=== PATIENT | male | born 1955 | race Caucasian/White ===

== ENCOUNTER 2018-02-23 08:09 | Emergency (ER) | payer OTHER ==
[~2018-02-23] VITALS: Wt 74.8 kg
--- NOTE | ~2018-02-23 | HM ---
[place], [place] HOLTER MONITOR REPORT [id number] UNIT #: [id number] ROOM: DOCTOR: VENANCIO RIZZO MD BIRTHDATE: [birth year] DOS: 02/27/2018 A 48-HOUR HOLTER MONITOR Recording was obtained between 02/23/2018 and 02/25/2018. The recording was analyzed on 02/27/2018 and interpreted and dictated the same day. INDICATIONS: Syncope. FINDINGS: The patient was monitored utilizing a Holter device for 48 hours. The basic rhythm was sinus. Average heart rate was 63 with heart rate varying from 35-109 beats per minute. Seven isolated PVCs were noted. There was no ventricular tachycardia seen. Occasional premature atrial contractions were noted. Five short runs of SVT were recorded with a duration of up to 7 beats. The fastest heart rate during SVT was 152 beats per minute. No prolonged SVT was seen. The patient did have marked bradycardia and a 4.1 second pause at 11:59 a.m. on the first day of monitoring 02/23/2018. A diary was returned, but there were no entries. IMPRESSION: 1. Sinus rhythm throughout the monitored duration. Average heart rate was relatively slow at 63 beats per minute. 2. Short runs of supraventricular tachycardia recorded. 3. Periods of marked sinus bradycardia recorded with a pause of up to 4.1 seconds recorded at about noon on the first monitor day. 4. No symptoms reported. The study is compatible with a conduction system disorder or sick sinus syndrome. The patient's medication list should be reviewed to make sure that he is not on rate slowing medications. VENANCIO RIZZO MD CM:HOLTER:HOLTER MONITOR REPORT [id number] VENANCIO RIZZO MD
--- NOTE | ~2018-02-23 | EKG ---
[place], [place] ELECTROCARDIOGRAM REPORT NAME: JOSE JOHNSON UNIT #: [id number] ROOM: DOCTOR: EPIPHANY DRAFT REPORT BIRTHDATE: [birth year] [facility] Test Date: 2018-02-23 Test Time: 08:52:51 Pat Name: JOSE JOHNSON Department: Room: Gender: Youth Services Specialist: Sandra Castillo : [id number] Requested By: MALIKA NORMAN Order Number: [id number] Reading MD: Андрей Maguire MD Measurements Intervals [place] Rate: 54 P: 49 MS: 176 QRS: 26 QRSD: 92 T: 48 QT: 421 QTc: 399 Interpretive Statements Sinus rhythm Abnormal inferior Q waves Electronically Signed On 02-23-2018 20:46:50 PDT by Андрей Maguire MD CM:EKGRPT:ELECTROCARDIOGRAM REPORT [id number] [id number] MALIAK HOYOS DRAFT REPORT MALIKA NORMAN M.D.
[~2018-02-23 08:09] MED LIST: Motrin,Rufen800 MG PO; VICODIN 500 MG-1 TAB PO
[2018-02-23 09:00] LABS: BASO % 0.3 % (0.0-1.0); EOS % 0.3 % (1.0-4.0); HEMATOCRIT 42.3 % (42.0-52.0); LYMPH # 0.4 10*3/uL (1.3-4.4); LYMPH % 6.5 % (27.0-41.0); MEAN CELL VOLUME 92.2 fl (80.0-94.0); MEAN CORPUSCULAR HGB 30.5 pg (27.0-31.0); MEAN CORPUSCULAR HGB CONC 33.1 g/dl (33.0-37.0); MEAN PLATELET VOLUME 9.9 fl (9.6-12.3); MONO # 0.4 10*3/uL (0.1-1.0); MONO % 6.2 % (3.0-9.0); NEUT # 5.2 10*3/uL (2.3-7.9); NEUT % 86.4 % (47.0-73.0); PLATELET COUNT AUTOMATED 193 10*3/uL (130-400); RED BLOOD COUNT 4.59 10*6/uL (4.50-5.90); RED CELL DISTRI WIDTH 12.6 % (0-14.5)
[2018-02-23 09:14] LABS: ALBUMIN 3.6 gm/dl (3.1-4.5); ALKALINE PHOSPHATASE 71 U/L (45-117); BUN 10 mg/dl (7-24); CHLORIDE 106 mmol/L (98-107); CREATININE 1.03 mg/dL (0.70-1.30); POTASSIUM 4.3 mmol/L (3.5-5.1); SGOT/AST 30 IU/L (3-35); SGPT/ALT 33 U/L (12-78); SODIUM 138 mmol/L (136-145); TOTAL PROTEIN 7.5 gm/dL (6.4-8.2)
[2018-02-23 10:34] LABS: BILIRUBIN NEGATIVE (NEGATIVE); BLOOD NEGATIVE (NEGATIVE); CLARITY CLEAR (CLEAR); COLOR YELLOW (YELLOW); GLUCOSE NEGATIVE (NEGATIVE); KETONE NEGATIVE (NEGATIVE); LEUKO ESTERASE NEGATIVE (NEGATIVE); NITRITE NEGATIVE (NEGATIVE); PH 5.5 (5.0-9.0); SPECIFIC GRAVITY >= 1.030 (1.005-1.030); UROBILINOGEN 0.2 E.U./dl (0.2-1.0)
[2018-02-23 10:41] LABS: URINE AMPHETAMINES < 1000 (1000ng/ml); URINE BARBITURATES < 200 (200ng/ml); URINE BENZODIAZEPINES < 200 (200ng/ml); URINE CANNABINOIDS (THC) < 50 (50ng/ml); URINE COCAINE < 300 (300ng/ml); URINE METHADONE < 300 (300ng/ml); URINE OPIATES < 300 (300ng/ml)
[2018-02-23 10:42] LABS: URINE PHENCYCLIDINE < 25 (25ng/ml)
[2018-02-23 10:50] LABS: BACTERIA 1+; MUCOUS 2+
== END 2018-02-23 12:38 | disposition home or self-care (01) ==
LOC: ED 08:09
PROVIDERS: Student in an Organized Health Care Education/Training Program
DX: R55 Syncope and collapse (principal)

== ENCOUNTER 2018-02-28 10:30 | Inpatient (IN) | payer OTHER ==
[~2018-02-28] VITALS: Ht 167.6 cm; Wt 80.9 kg
--- NOTE | ~2018-02-28 | CON ---
[place], [place] REPORT OF CONSULTATION [id number] UNIT #: [id number] ROOM: 404 DOCTOR: VENANCIO RIZZO MD BIRTHDATE: [birth year] DOS: 02/28/2018 CARDIOLOGY CONSULTATION REASON FOR CONSULTATION: Syncope. HISTORY OF PRESENT ILLNESS: The patient is a 62-year-old man who was seen in [facility] on 02/28/2018 for evaluation of syncope. He actually initially presented to the hospital Emergency Room on 02/23/2018. He told the staff that he was having episodes of passing out. These would come without warning. On the day of his Emergency Room visit, he was standing at the time clock at work when he fell and lost consciousness briefly. He stated he had several other episodes that day as well. In the Emergency Room, his examination was normal and he was allowed to go home, but a 48-hour Holter monitor was placed. This was interpreted on 02/27/2018 and showed that he had an average heart rate of 63 with heart rates recorded as low as 35 beats per minute, maximum heart rate was 109. He did have several short runs of SVT, lasting up to 7 beats with a rate of up to 152 beats per minute. He also had marked sinus bradycardia with a 4.1 second pause at around noon on the first day of his monitor. Despite these findings, he had no entries on his diary. He was called by the Emergency Room staff back to the hospital this morning and was admitted for further assessment and management. The patient denies any warning that he is going to have syncopal episodes. He denies any recent change in his exercise capacity and denies any chest pain or palpitations. He has injured himself when falling and has a cut on his right arm from this. PAST MEDICAL HISTORY: Generally unremarkable. The patient has not seen a physician in many years. He denies any history of hypertension, diabetes, hyperlipidemia, myocardial infarction or stroke. He has had multiple fainting spells in the last few weeks. PAST SURGICAL HISTORY: Positive for cystoscopy with laser lithotripsy. FAMILY HISTORY: Positive for hypertension and heart disease. He states that his mother of a "massive heart attack" in her late 50s. MEDICATIONS PRIOR TO ADMISSION: None. ALLERGIES: The patient has no known drug allergies. REVIEW OF SYSTEMS: The patient denies diplopia or loss of vision. He denies lightheadedness, but has had syncopal episodes. He denies palpitations. He denies nausea or vomiting. He denies fevers, chills, sweats or recent weight change. He denies orthopnea or PND. He denies any peripheral edema. He denies cough or hemoptysis. He denies any hematemesis. He denies change in bowel or bladder habits. He denies blood in his stools or urine. He denies any skin rashes. He denies heat or cold intolerance. He denies polyuria or polydipsia. Remainder of the review of systems is negative except as noted above. [place], [place] REPORT OF CONSULTATION NAME: JOSE JOHNSON UNIT #: [id number] ROOM: [facility] DOCTOR: VENANCIO RIZZO MD BIRTHDATE: [birth year] SOCIAL HISTORY: The patient lives with his . He does not smoke or drink. He works at [employer]. He denies the use of illegal substances. He does dip snuff. PHYSICAL EXAMINATION: GENERAL: The patient is a slender white male who is awake, alert and oriented. VITAL SIGNS: Pulse is 68 and regular, blood pressure 143/78. He is afebrile. He weighs 80.9 kg and has a body mass index 28.8. HEENT: Normocephalic and atraumatic. Extraocular muscles are intact. Sclerae are clear. Pupils equal, round and react to light. The oral mucosa is moist. Tongue is midline. NECK: Supple. He has no jugular distention. Carotids are full. I heard no bruits. He had no neck or supraclavicular masses and no thyromegaly. LUNGS: Respirations are unlabored. His chest is clear to auscultation and percussion. He has no presacral edema or chest wall tenderness. CARDIOVASCULAR: His heart has a regular rhythm. He has a fourth heart sound, but no third heart sound. The PMI is not displaced. He has no precordial heave, lift or thrill. ABDOMEN: Soft and normally active without masses, organomegaly or bruits. EXTREMITIES: Showed no clubbing, cyanosis or edema. Peripheral pulses are easily palpated in the feet. LABORATORY DATA: Hemoglobin is 15.1, hematocrit is 45.3. There is 5000 white cells and 213,000 platelets. Sodium is 144, potassium 4.3, chloride 110, CO2 29, BUN 14, creatinine 0.98. Estimated GFR is greater than 60. Troponin is normal less than 0.015. TSH is normal at 0.934. IMPRESSION: Syncopal episodes, likely due to sick sinus syndrome with tachycardic and bradycardic features. The patient has injured himself during syncope. Thus far, no primary cause has been found aside from his conduction system disorder and he specifically does not take medications or drugs that would cause this or have a history of thyroid disease. PLAN: I have discussed his situation with electrophysiology at [facility] in [place]. They would like me to obtain studies to evaluate for coronary artery disease and left ventricular function. Accordingly, he will have an echocardiogram today and a pharmacologic stress test in the morning. If those look good, then we will plan on transferring him to [facility] for placement of a dual chamber pacemaker shortly after that. [facility] Cardiology and I thank the hospitalist physicians for asking our advice regarding the patient's care. [place], [place] REPORT OF CONSULTATION NAME: JOSE JOHNSON UNIT #: [id number] ROOM: [facility] DOCTOR: VENANCIO RIZZO MD BIRTHDATE: [birth year] VENANCIO RIZZO MD CM:CONSTR:REPORT OF CONSULTATION 1200 02/28/18 1305 interface
--- NOTE | ~2018-02-28 | PR ---
[place], [place] PROGRESS NOTE NAME: JOSE JOHNSON UNIT #: [id number] ROOM: 404 DOCTOR: VENANCIO RIZZO MD BIRTHDATE: [birth year] DOS: 03/01/2018 CARDIOLOGY PROGRESS NOTE SUBJECTIVE: The patient was seen in the Cardiology Department today prior to his stress test. He states that he has felt well overnight. He has not had any syncopal episodes in the hospital and his monitor has only shown sinus rhythm and sinus bradycardia. He has not had any prolonged pauses. Evaluation thus far has included a TSH, which was normal and electrolytes which were likewise normal. CBC was normal. An echocardiogram showed normal left ventricular size, wall thickening and systolic function with normal valve function. The study was felt to be normal for a man of his age. PHYSICAL EXAMINATION: VITAL SIGNS: His pulse is 51 and regular, blood pressure is 131/68. He is afebrile. NECK: Supple. He has no jugular distention. Carotids are full. LUNGS: Respirations are unlabored. Chest is clear. HEART: Has a regular rhythm with an S4 gallop. ABDOMEN: Benign. EXTREMITIES: Showed no edema. IMPRESSION: Syncopal episodes, likely due to sick sinus syndrome with tachycardic and bradycardic features. The patient has injured himself during a fall and is not on any medical therapy that would predispose to bradycardia. His cardiac workup thus far is normal. PLAN: We will proceed with a pharmacologic stress test today. If this looks good, then we will attempt to move him to [facility] [place] [facility] within the next 24 hours for insertion of a dual chamber pacemaker. I thank the hospitalist physicians for asking our advice regarding his care. [place], [place] PROGRESS NOTE NAME: JOSE JOHNSON UNIT #: [id number] ROOM: 404 DOCTOR: VENANCIO RIZZO MD BIRTHDATE: [birth year] VENANCIO RIZZO MD CM:PNTRANS [id number] VENANCIO RIZZO MD 03/02/18 1742 interface
[2018-02-28 10:50] VITALS: BP 143/78
[2018-02-28 11:24] LABS: BASO % 0.6 % (0.0-1.0); EOS # 0.1 10*3/uL (0.0-0.4); EOS % 1.2 % (1.0-4.0); HEMATOCRIT 45.3 % (42.0-52.0); HEMOGLOBIN 15.1 g/dl (14.0-18.0); LYMPH # 0.8 10*3/uL (1.3-4.4); LYMPH % 15.2 % (27.0-41.0); MEAN CELL VOLUME 92.4 fl (80.0-94.0); MEAN CORPUSCULAR HGB 30.8 pg (27.0-31.0); MEAN CORPUSCULAR HGB CONC 33.3 g/dl (33.0-37.0); MEAN PLATELET VOLUME 10.4 fl (9.6-12.3); MONO # 0.5 10*3/uL (0.1-1.0); MONO % 10.7 % (3.0-9.0); NEUT # 3.6 10*3/uL (2.3-7.9); NEUT % 72.1 % (47.0-73.0); PLATELET COUNT AUTOMATED 213 10*3/uL (130-400); RED CELL DISTRI WIDTH 12.5 % (0-14.5)
[2018-02-28 11:33] LABS: ALBUMIN 3.4 gm/dl (3.1-4.5); ALKALINE PHOSPHATASE 79 U/L (45-117); BUN 14 mg/dl (7-24); CHLORIDE 110 mmol/L (98-107); CREATININE 0.98 mg/dL (0.70-1.30); PHOSPHOROUS 1.8 mg/dL (2.5-4.9); POTASSIUM 4.3 mmol/L (3.5-5.1); SGOT/AST 26 IU/L (3-35); SGPT/ALT 33 U/L (12-78); SODIUM 144 mmol/L (136-145); TOTAL PROTEIN 7.4 gm/dL (6.4-8.2)
[2018-02-28 11:36] LABS: TROPONIN I < 0.015 ng/ml (<0.045)
[2018-02-28 11:39] LABS: THYROID STIM HORMONE (HS) 0.934 uIU/ml (0.358-4.75)
[2018-02-28 12:00] VITALS: BP 143/78
[2018-02-28 13:22] LABS: ACT PARTIAL THROMBO TIME 21.6 SECONDS (20.8-31.5)
[2018-02-28 16:00] VITALS: BP 142/69
[2018-02-28 20:00] VITALS: BP 160/81
[2018-03-01] VITALS: BP 152/99
[2018-03-01 06:06] LABS: BASO % 0.4 % (0.0-1.0); EOS # 0.1 10*3/uL (0.0-0.4); EOS % 1.2 % (1.0-4.0); HEMOGLOBIN 14.8 g/dl (14.0-18.0); LYMPH # 0.8 10*3/uL (1.3-4.4); LYMPH % 16.2 % (27.0-41.0); MEAN CELL VOLUME 92.8 fl (80.0-94.0); MEAN CORPUSCULAR HGB 30.5 pg (27.0-31.0); MEAN CORPUSCULAR HGB CONC 32.9 g/dl (33.0-37.0); MEAN PLATELET VOLUME 10.5 fl (9.6-12.3); MONO # 0.5 10*3/uL (0.1-1.0); NEUT # 3.7 10*3/uL (2.3-7.9); PLATELET COUNT AUTOMATED 205 10*3/uL (130-400); RED BLOOD COUNT 4.85 10*6/uL (4.50-5.90); RED CELL DISTRI WIDTH 12.6 % (0-14.5); WHITE BLOOD COUNT 5.2 10*3/uL (4.8-10.8)
[2018-03-01 06:17] LABS: ALBUMIN 3.4 gm/dl (3.1-4.5); BUN 16 mg/dl (7-24); CHLORIDE 105 mmol/L (98-107); CHOLESTEROL 188 mg/dL (<200); CREATININE 0.92 mg/dL (0.70-1.30); PHOSPHOROUS 2.8 mg/dL (2.5-4.9); POTASSIUM 3.6 mmol/L (3.5-5.1); SGOT/AST 24 IU/L (3-35); SGPT/ALT 29 U/L (12-78); SODIUM 139 mmol/L (136-145); TOTAL PROTEIN 6.9 gm/dL (6.4-8.2); TRIGLYCERIDES 84 mg/dl (<150); VLDL CHOLESTEROL 17 mg/dL (6-40)
[2018-03-01 06:24] LABS: ALKALINE PHOSPHATASE 74 U/L (45-117); HDL CHOLESTEROL 48 mg/dl (40-60); LDL CHOLESTEROL 123 mg/dL (9-159)
[2018-03-01 06:45] LABS: ACT PARTIAL THROMBO TIME 22.3 SECONDS (20.8-31.5); INTERNATIONAL NORM RATIO 0.9 (2.0-3.5)
[2018-03-01 08:15] VITALS: BP 132/72
[2018-03-01 09:41] LABS: VITAMIN D, 25-HYDROXY 21.9 ng/mL (30-100)
[2018-03-01 12:00] VITALS: BP 131/68
[2018-03-01 15:51] VITALS: BP 160/84
[2018-03-01] MEDS ORDERED: B12,B-12,B 12500 MC1 PO (17:23)
[2018-03-01] MEDS ORDERED: VITAMIN D-32000 UNIT PO (17:23)
[2018-03-01 20:00] VITALS: BP 138/63
[2018-03-02] VITALS: BP 126/67
== END 2018-03-02 05:30 | disposition other institution (70) | DRG 312 ==
LOC: 4E 10:30
PROVIDERS: Internal Medicine; Student in an Organized Health Care Education/Training Program
PROC: 3E073KZ Introduction of Other Diagnostic Substance into Coronary Artery, Percutaneous Approach (ICD-10-PCS; principal; 2018-03-01)
PROC: 4A02XM4 Measurement of Cardiac Total Activity, External Approach (ICD-10-PCS; principal; 2018-03-01)
DX: R55 Syncope and collapse (principal); E83.39 Other disorders of phosphorus metabolism; I45.5 Other specified heart block; I10 Essential (primary) hypertension; R94.31 Abnormal electrocardiogram [ECG] [EKG]; E87.8 Other disorders of electrolyte and fluid balance, not elsewhere classified; Z82.49 Family history of ischemic heart disease and other diseases of the circulatory system; Z87.442 Personal history of urinary calculi; Z72.0 Tobacco use; Z71.6 Tobacco abuse counseling